=== PATIENT | female | born 1940 | race Caucasian/White ===

== ENCOUNTER 2021-04-12 16:14 | Emergency (ER) | payer MEDICARE, OTHER ==
[~2021-04-12 16:14] MED LIST: DIFLUCAN 100MG100 MG PO; MACROBID100 MG PO; NYSTATIN 30GM C30 GM TOP; ZOFRAN4 MG SL
[2021-04-12 17:24] LABS: BASOPHIL 0.5 % (0-2); EOSINOPHIL 2.5 % (0-7); HCT 27.4 % (37.0-47.0); HGB 9.1 g/dl (12.5-16.0); LYMPHOCYTE 14.3 % (15-48); MCHC 33.2 g/dL (32.0-36.0); MCV 93.2 fL (78.0-100.0); MONOCYTE 9.2 % (0-12); MPV 8.7 fL (6.0-9.5); NEUTROPHIL 73.3 % (41-80); NRBC 0; PLT 377 K/uL (150-400); RBC 2.94 M/uL (4.20-5.40); RDW 14.6 % (11.5-14.0)
[2021-04-12 17:49] LABS: ALBUMIN 2.9 g/dL (3.4-5.0); BILIRUBIN - TOTAL 0.6 mg/dL (0.2-1.0); BUN/CREAT RATIO (CALC) 30.3 RATIO; CREATININE 0.89 mg/dL (0.51-0.95); GLOBULIN (CALCULATION) 4.1 g/dL; POTASSIUM 3.5 mmol/L (3.5-5.1)
[2021-04-15] MEDS ORDERED: PANTOPRAZOLE SO40 MG PO (08:27)
[2021-04-15] MEDS ORDERED: AMLODIPINE BESY10 MG PO (08:28)
[2021-04-15] MEDS ORDERED: MELOXICAM15 MG PO (08:28)
[2021-04-15] MEDS ORDERED: ATORVASTATIN CA40 MG PO (08:28)
== END 2021-04-12 19:42 | disposition home or self-care (01) ==
LOC: FER 16:14
PROVIDERS: Nurse Practitioner Family
DX: C16.9 Malignant neoplasm of stomach, unspecified (principal); I10 Essential (primary) hypertension
CPT/HCPCS: 36415; 80053; 83690; 85025; J7030; Q9967

== ENCOUNTER → 2021-04-17 | Day surgery (SDC) | payer MEDICARE, OTHER ==
[~2021-04-17] VITALS: Ht 152.4 cm; Wt 50.8 kg
[~2021-04-17] MED LIST changes: +AMLODIPINE BESY10 MG PO; +ATORVASTATIN CA40 MG PO; +MELOXICAM15 MG PO; +PANTOPRAZOLE SO40 MG PO
== END | disposition home or self-care (01) ==
LOC: FAS 09:39
DX: K29.80 Duodenitis without bleeding (principal); K26.3 Acute duodenal ulcer without hemorrhage or perforation; K26.7 Chronic duodenal ulcer without hemorrhage or perforation; K31.9 Disease of stomach and duodenum, unspecified; K25.9 Gastric ulcer, unspecified as acute or chronic, without hemorrhage or perforation; K31.6 Fistula of stomach and duodenum; K82.4 Cholesterolosis of gallbladder; M81.0 Age-related osteoporosis without current pathological fracture; J45.909 Unspecified asthma, uncomplicated; F32.9 Major depressive disorder, single episode, unspecified; K21.9 Gastro-esophageal reflux disease without esophagitis; E78.5 Hyperlipidemia, unspecified; I10 Essential (primary) hypertension; N39.0 Urinary tract infection, site not specified; R63.4 Abnormal weight loss; Z88.1 Allergy status to other antibiotic agents; Z96.653 Presence of artificial knee joint, bilateral; Z90.710 Acquired absence of both cervix and uterus
CPT/HCPCS: 88305; J2250; J2704; J7120